=== PATIENT | female | born 1960 | race Caucasian/White ===

== ENCOUNTER 2017-01-26 08:48 | Day surgery (SDC) | payer OTHER ==
[2017-01-26] VITALS (547 sets, daily range): BP systolic 97–129; BP diastolic 46–69; PULSE 60–73; TEMP 94–98.6; O2SAT 50–100
[~2017-01-26] VITALS: Ht 157.6 cm; Wt 86.0 kg
[~2017-01-26 08:48] MED LIST: AMBIEN 10MG10 MG PO; ASPIRIN 81M81 MG/TA2 PO; COLESTID 1GM1 G PO; HYZAAR 12.5 MG-1 TAB PO; LIPITOR 80MG80 MG PO; MOBIC 7.5MG7.5 MG PO; MOBIC15 MG; OMEGA-3 FISH1000 MG PO; PLAVIX 75MG TAB75 MG PO; PROFERRIN ES12 MG PO; SYNTHROID0.125 MG/T PO; ULTRAM 50MG TAB50 MG PO
[2017-01-26 09:40] LABS: HEMATOCRIT 34.3 % (37.0-47.0); HEMOGLOBIN 11.7 g/dl (12.5-16.0); MEAN CELL VOLUME 92 fl (80.0-100.0); MEAN CORPUSCULAR HEMOGLOBIN 31 pg (27.0-31.0); MEAN CORPUSCULAR HGB CONC 34 g/dl (33.0-37.0); MEAN PLATELET VOLUME 9.2 fl (7.4-10.4); PLATELET COUNT 264 K/mm3 (130-400); RED BLOOD COUNT 3.73 M/mm3 (4.10-5.30); WHITE BLOOD COUNT 7.4 K/mm3 (4.8-10.8)
[2017-01-26] MEDS ORDERED: ASPIRIN 81M81 MG/TA2 PO (09:51)
[2017-01-26] MEDS ORDERED: LIPITOR 80MG80 MG PO (09:51)
[2017-01-26] MEDS ORDERED: COLESTID 1GM1 G PO (09:52)
[2017-01-26 09:53] LABS: CALCIUM 9.8 mg/dL (8.4-10.2); CREATININE, serum 0.8 mg/dL (0.52-1.25)
[2017-01-26] MEDS ORDERED: MOBIC 7.5MG7.5 MG PO (09:55)
[2017-01-26] MEDS ORDERED: NITROSTAT0.4 MG/TAB SL (09:56)
[2017-01-26 09:57] LABS: INR 1.1 (0.8-3.0)
[2017-01-26] MEDS ORDERED: COUMADIN 5MG5 MG/TAB PO ×2 (09:58)
[2017-01-26] MEDS ORDERED: IRON TABLETS325 MG PO (10:01)
[2017-01-26] MEDS ORDERED: PREDNISONE20 MG PO (10:14)
[2017-01-26 10:15] LABS: POTASSIUM 2.9 mmol/L (3.4-5.0)
[2017-01-26 20:46] LABS: HEMOGLOBIN 12.1 g/dl (12.5-16.0)
[2017-01-26 20:47] LABS: HEMATOCRIT 35.4 % (37.0-47.0)
[2017-01-27] VITALS (408 sets, daily range): BP systolic 98–109; BP diastolic 54–60; PULSE 63–68; TEMP 98.6–98.7; O2SAT 86–100
[2017-01-27 05:41] LABS: MEAN CELL VOLUME 95 fl (80.0-100.0); MEAN CORPUSCULAR HGB CONC 33 g/dl (33.0-37.0); MEAN PLATELET VOLUME 9.2 fl (7.4-10.4); PLATELET COUNT 250 K/mm3 (130-400); RED BLOOD COUNT 3.42 M/mm3 (4.10-5.30); WHITE BLOOD COUNT 9.7 K/mm3 (4.8-10.8)
[2017-01-27 05:44] LABS: HEMATOCRIT 32.5 % (37.0-47.0); HEMOGLOBIN 10.7 g/dl (12.5-16.0); MEAN CORPUSCULAR HEMOGLOBIN 31 pg (27.0-31.0)
[2017-01-27 05:53] LABS: CALCIUM 9.1 mg/dL (8.4-10.2); CREATININE, serum 1.01 mg/dL (0.52-1.25)
[2017-01-27] MEDS ORDERED: PLAVIX 75MG TAB75 MG PO ×2 (10:47→10:49)
== END 2017-01-27 11:45 | disposition home or self-care (01) ==
LOC: COL.CAR 08:48 → ICU 14:05 → COL.CAR 01-27 11:45
PROVIDERS: Internal Medicine Interventional Cardiology
DX: R07.9 Chest pain, unspecified (principal); R94.39 Abnormal result of other cardiovascular function study; Q21.1 Atrial septal defect; I10 Essential (primary) hypertension; E03.9 Hypothyroidism, unspecified; E78.5 Hyperlipidemia, unspecified; Z86.73 Personal history of transient ischemic attack (TIA), and cerebral infarction without residual deficits; Z82.3 Family history of stroke; Z82.49 Family history of ischemic heart disease and other diseases of the circulatory system; Z79.01 Long term (current) use of anticoagulants
CPT/HCPCS: OP; C1725; C1760; C1769; C1874; C1887; C1894; C9600; J0583; J1200; J2250; J3010; Q9967

== ENCOUNTER → 2019-04-29 | Outpatient (CLI) | payer OTHER ==
[~2019-04-29] MED LIST changes: +COUMADIN 5MG5 MG/TAB PO; +IRON TABLETS325 MG PO; +NITROSTAT0.4 MG/TAB SL; +PREDNISONE20 MG PO
[2019-04-29 15:33] LABS: BASO % 0.2 % (0.0-2.0); EOS % 0.2 % (0-4.0); GRAN # 5.9 (1.4-6.5); GRAN % 89.3 % (42.2-75.2); HEMOGLOBIN 12.3 g/dl (12.5-16.0); LYMPH # 0.5 (1.2-3.4); LYMPH % 7.5 % (20.0-51.0); MEAN CELL VOLUME 96 fl (80.0-100.0); MEAN CORPUSCULAR HEMOGLOBIN 31 pg (27.0-31.0); MEAN CORPUSCULAR HGB CONC 32 g/dl (33.0-37.0); MEAN PLATELET VOLUME 9.2 fl (7.4-10.4); MONO # 0.2 (0.1-0.6); MONO % 2.3 % (1.7-9.3); PLATELET COUNT 265 K/mm3 (130-400); RED BLOOD COUNT 3.95 M/mm3 (4.10-5.30); REDCELL DISTRIBUTION WIDTH-CV 13.8 % (11.5-14.5)
[2019-04-29 15:45] LABS: ALBUMIN 4.4 gm/dL (3.5-5.0); BILIRUBIN,TOTAL 0.8 mg/dL (0.0-1.0); CREATININE, serum 0.81 (0.52-1.25); POTASSIUM 3.3 mmol/L (3.4-5.0); TOTAL PROTEIN 7.3 gm/dL (6.4-8.2)
== END ==
LOC: COL.LAB 14:24
PROVIDERS: Physician Assistant
DX: K85.90 Acute pancreatitis without necrosis or infection, unspecified (principal)

== ENCOUNTER → 2020-06-29 | Outpatient (CLI) | payer OTHER ==
[~2020-06-29] MED LIST changes: +CEFTIN500 MG PO; +NORCO 325 MG-51 TAB PO; +ZOFRAN ODT4 MG PO
== END ==
LOC: COL.LAB 15:37
DX: R07.89 Other chest pain (principal)

== ENCOUNTER 2020-12-30 11:24 | Emergency (ER) | payer OTHER ==
[~2020-12-30] VITALS: Ht 154.9 cm; Wt 84.1 kg
[2020-12-30 11:26] VITALS: TEMP 97.6
[2020-12-30 11:43] LABS: BASO % 0.5 % (0.0-2.0); EOS # 0.1 K/mm3 (0.0-0.7); EOS % 2.1 % (0-4.0); GRAN % 54.3 % (42.2-75.2); LYMPH # 1.4 K/mm3 (1.2-3.4); LYMPH % 36.4 % (20.0-51.0); MEAN CELL VOLUME 95 fl (80.0-100.0); MEAN CORPUSCULAR HGB CONC 32 g/dl (33.0-37.0); MEAN PLATELET VOLUME 9.2 fl (7.4-10.4); MONO # 0.2 K/mm3 (0.1-0.6); MONO % 5.9 % (1.7-9.3); PLATELET COUNT 266 K/mm3 (130-400); RED BLOOD COUNT 3.25 M/mm3 (4.10-5.30); REDCELL DISTRIBUTION WIDTH-CV 13.9 % (11.5-14.5)
[2020-12-30 11:47] LABS: HEMATOCRIT 30.7 % (37.0-47.0); HEMOGLOBIN 9.9 g/dl (12.5-16.0); MEAN CORPUSCULAR HEMOGLOBIN 30 pg (27.0-31.0)
[2020-12-30 11:54] LABS: ALANINE AMINOTRANSFERASE 36 U/L (0-55); ALBUMIN 3.9 gm/dL (3.4-4.8); ALKALINE PHOSPHATASE 94 U/L (40-150); ANION GAP 13 mmol/L (7-16); AST,SGOT 32 U/L (5-34); BILIRUBIN,TOTAL 0.3 mg/dL (0.2-1.2); BLOOD UREA NITROGEN 16 mg/dL (10-20); CALCIUM 9.4 mg/dL (8.4-10.2); CARBON DIOXIDE 25 mmol/L (23-31); CHLORIDE 105 mmol/L (98-107); CREATININE, serum 1.11 mg/dL (0.57-1.11); GLUCOSE 141 mg/dL (70-99); POTASSIUM 3.3 mmol/L (3.5-4.5); SODIUM 143 mmol/L (136-145); TOTAL PROTEIN 6.4 gm/dL (6.2-8.1)
[2020-12-30 12:00] LABS: COLLECTION METHOD CLEAN CATCH
[2020-12-30 12:04] LABS: TROPONIN-I < 0.010 ng/mL (0.00-0.033)
[2020-12-30 12:16] LABS: MUCOUS Present /lpf; PH 6 (5-8); SQUAMOUS EPITHELIAL 0-2 /hpf; URINE APPEARANCE Clear; URINE BACTERIA Rare /hpf; URINE BILIRUBIN Negative (NEGATIVE); URINE BLOOD Negative (NEGATIVE); URINE COLOR Yellow; URINE GLUCOSE Negative (NEGATIVE); URINE KETONE Negative (NEGATIVE); URINE LEUKOCYTE ESTERASE 1+ (NEGATIVE); URINE NITRATE Negative (NEGATIVE); URINE PROTEIN(semi-quant) Negative (NEGATIVE); URINE RBC 0-2 /hpf; URINE UROBILINOGEN Negative (NEGATIVE)
[2020-12-30 12:24] LABS: TRICYCLIC ANTIDEPRESS URINE NEGATIVE
[2020-12-30 13:45] VITALS: BP 145/70; PULSE 75
== END 2020-12-30 13:45 | disposition home or self-care (01) ==
LOC: COL.ER 11:24
PROVIDERS: Physician Assistant
DX: R41.82 Altered mental status, unspecified (principal); D64.9 Anemia, unspecified; E87.6 Hypokalemia; I10 Essential (primary) hypertension; E78.5 Hyperlipidemia, unspecified; G47.00 Insomnia, unspecified; E03.9 Hypothyroidism, unspecified; Z86.73 Personal history of transient ischemic attack (TIA), and cerebral infarction without residual deficits; Z79.890 Hormone replacement therapy; Z79.899 Other long term (current) drug therapy; Z79.01 Long term (current) use of anticoagulants; Z79.02 Long term (current) use of antithrombotics/antiplatelets; Z20.822 Contact with and (suspected) exposure to COVID-19
CPT/HCPCS: J7030

== ENCOUNTER → 2021-03-15 | Outpatient (CLI) | payer OTHER | LOC: MC.RAD 16:53 | DX: Z12.31 Encounter for screening mammogram for malignant neoplasm of breast (principal) ==